=== PATIENT | female | born 1990 | race Caucasian/White ===

== ENCOUNTER 2017-02-18 13:40 | Emergency (ER) | payer OTHER ==
[~2017-02-18] VITALS: Ht 172.7 cm; Wt 87.8 kg
[2017-02-18 13:57] VITALS: BP 130/71; PULSE 108; TEMP 37; O2SAT 99; Ht 172.7 cm; Wt 87.8 kg
[2017-02-18] MEDS ORDERED: PRENTAB26 PO (14:36)
--- NOTE | 2017-02-18 14:45 | EMERGENCY ROOM VISIT NOTE ---
History First contact with patient: 14:05 Chief Complaint: BACK PAIN Stated Complaint: EXTREME LOWER BACK PAIN History of Present Illness The patient is a 26 year old female who presents to the Emergency Room via private vehicle accompanied by son with complaints of "extreme low back pain". The patient states that she is 12 weeks . She states that she has a history of back problems of which she is been experiencing for the past 3 years. She states this is worse than her normal back pain. She states that she tried to crack her back by twisting earlier in the week and since then this caused her pain. She points to the superior lumbar spine as a location of the pain she rates as an 8/10. It is worse with movement. She states she feels it is worsening. She denies any urinary symptoms, lower extremity weakness, bowel or bladder incontinence, numbness or tingling in her genital region, abdominal pain, vaginal spotting or vaginal discharge. Review of Systems A complete 6-point Review of Systems was discussed with the patient, with pertinent positives and negatives listed in the History of Present Illness. All remaining Review of Systems questions can be considered negative unless otherwise specified. Past Medical/Surgical History Low back pain, scoliosis Family History No pertinent family history at this time. Social History Smoking Status: Current Every Day Smoker Current/Historical Medications Scheduled Multivit/Min/Iron/Fol Ac/Pren ( Vitamin), 1 TAB PO DAILY Allergies Coded Allergies: No Known Allergies (Unverified , 02/18/17) Physical Exam Vital Signs Date Time Temp Pulse Resp B/P Pulse Ox O2 Delivery O2 Flow Rate FiO2 02/18/17 13:57 37.0 108 16 130/71 99 Room Air Physical Exam PHYSICAL EXAM: VITALS: Vitals are noted on the nurse's note and reviewed by myself. Vital signs stable. GENERAL: 26-year-old female, in no acute distress, nondiaphoretic, well- developed well-nourished. SKIN: The skin was without rashes, erythema, edema, or bruising. Capillary refill less than 2 seconds. NECK: Supple without nuchal rigidity. No cervical spine tenderness. No paraspinous muscle tenderness. HEART: Regular rate and rhythm without murmurs gallops or rubs. LUNGS: Clear to auscultation bilaterally without wheezes, rales or rhonchi. ABDOMEN: Positive bowel sounds x 4. Normal tympanic percussion. Soft, nontender, without masses or organomegaly. MUSCULOSKELETAL: No muscle atrophy, erythema, or edema noted of the back. There is minimal tenderness over the lumbar spinous processes. There is positive tenderness over the paraspinous muscles of the superior lumbar spine. There is minimal tenderness over the thoracic spine and paraspinous muscles. There are positive muscle spasms present. The patient is slow to move around with maximum tenderness with any superior lumbar paraspinous processes. NEURO: Patient was alert and oriented to person place and time. Normal sensation to light and sharp touch. Deep tendon reflexes 2+ in the lower extremities. Strength 5/5 and equal in the bilateral lower extremities. Medical Decision & Procedures Medical Decision The patient was seen and evaluated as above. After obtaining a thorough history and physical examination a thorough discussion was had with the patient regarding benefits versus risk of obtaining imaging pain medication because she was . The patient states she tried [id number] medication and was requesting medication such as Percocet. I informed her this is potentially harmful to the fetus. She states that she took this during her entire last and is aware of the risks. I do not believe that imaging is warranted at this time. I believe that the benefit of imaging outweighs the risk to her in the fetus. She was neurologically intact. I do not suspect any traumatic mechanism of injury. I did discuss the case with my attending and the decision was made to not provide narcotics as risk outweighed the benefit. Patient was informed upon this and began to cry noting that she was in pain. I informed her that we do not believe the benefit outweighs the risk providing narcotic medication. She was reviewed with him the [place] drug monitoring system and has had various prescriptions for high strength narcotic medication. I informed her that I be more than happy to contact her MINE MOTOR ENGINEER or family doctor to help establish follow-up for her back pain. She states that she will contact them to schedule follow-up. She was in agreement with plan, was educated upon worrisome symptoms in which to return, had questions prior to discharge and was discharged home in good condition. In the evaluation and treatment of this patient following differential diagnoses were entertained: Lumbar strain, cauda equina syndrome, miscarriage, drug-seeking behavior, among others. I suspect the patient is experiencing a superior lumbar strain. I do not suspect any emergent processes. [place] Drug Monitoring Program Search Results: patient reviewed within database, see additional documentation Impression Primary Impression: Strain of lumbar region Departure Information Dispostion Home / Self-Care Condition GOOD Referrals No Doctor, Assigned (PCP) Jacinto Ortiz M.D. Patient Instructions [facility] Additional Instructions You have been treated in the Emergency Department for Back Pain. For pain control, you can use the following [id number] medicines (if >12 yo): - Regular strength (325mg/tab) Tylenol (acetaminophen) 2 tabs every 4-6 hours as needed. Do not exceed 12 tablets in a 24 hour period. Avoid taking more than 3 grams (3000 mg) of Tylenol per day. This includes any other sources of acetaminophen you may take on a regular basis. If this is an acute injury, ice can be applied to the area of pain for the first 3 days to help decrease pain and inflammation. After the first 3 days, a heating pad can be used over the area for continued soothing relief. You should schedule a follow-up appointment in 2-3 days with your Primary Care Provider for further evaluation and treatment of your back pain. You've also been provided the number for a robotics specialist, of which he may follow-up for in the future as we discussed. As we discussed we are not comfortable providing narcotic medication as you are . It is recommended to discuss pain options with your MINE MOTOR ENGINEER and family doctor. Return to the Emergency Department if your current symptoms worsen despite treatment course outlined above, or if you develop any of the following symptoms : intractable pain despite aforementioned treatment course, loss of control of your bowel or bladder, numbness or tingling in your groin, or development of a fever. We would be more than happy to help at any time, please return with any new/ concerning symptoms.
== END 2017-02-18 14:52 | disposition home or self-care (01) ==
LOC: C.EDB 13:42 → C.EDD 14:52
DX: S39.012A Strain of muscle, fascia and tendon of lower back, initial encounter (principal); O99.89 Other specified diseases and conditions complicating pregnancy, childbirth and the puerperium; Z3A.12 12 weeks gestation of pregnancy; X50.0XXA Overexertion from strenuous movement or load, initial encounter; F17.210 Nicotine dependence, cigarettes, uncomplicated; O99.331 Smoking (tobacco) complicating pregnancy, first trimester

== ENCOUNTER → 2017-02-18 | Outpatient (CLI) | payer OTHER ==
[~2017-02-18] MED LIST: PRENTAB26 PO
[2017-02-18 16:31] LABS: URINE APPEARANCE CLEAR (CLEAR); URINE BILIRUBIN NEG (NEG); URINE COLOR YELLOW; URINE EPITHELIAL CELL AUTO >30 /lpf (0-5); URINE NITRITE NEG (NEG); URINE SPECIFIC GRAVITY 1.018 (1.000-1.030); UROBILINOGEN NEG (NEG)
[2017-02-18 16:34] LABS: MANUAL MICROSCOPIC REQUIRED? NO; REVIEW REQ? NO
== END | disposition home or self-care (01) ==
LOC: C.LABSPEC 16:08
PROVIDERS: ATTEND Obstetrics & Gynecology
DX: O99.330 Smoking (tobacco) complicating pregnancy, unspecified trimester (principal); F17.200 Nicotine dependence, unspecified, uncomplicated

== ENCOUNTER → 2017-02-24 | Outpatient (CLI) | payer OTHER ==
[~2017-02-24] MED LIST changes: +CALC500C3; +FERR50TA3
[2017-02-24 14:40] LABS: BASO % 0.1 %; BASO ABS # 0.01 K/uL (0-0.2); COMPLETE YES; EOS % 0.3 %; HEMATOCRIT 32.8 % (37-47); IG% 0.3 %; LYMPH % 13.3 %; LYMPH ABS # 1.24 K/uL (1.2-3.4); MEAN CORPUSCULAR HEMOGLOBIN 29.5 pg (25-34); MEAN CORPUSCULAR HGB CONC 34.8 g/dl (32-36); MONO % 5.3 %; NEUT % 80.7 %; PLATELET COUNT 315 K/uL (130-400); RED BLOOD COUNT 3.86 M/uL (4.2-5.4); WHITE BLOOD COUNT 9.32 K/uL (4.8-10.8)
== END | disposition home or self-care (01) ==
LOC: C.LAB1850 12:18
PROVIDERS: ATTEND Obstetrics & Gynecology
DX: Z36 Encounter for antenatal screening of mother (principal)

== ENCOUNTER → 2017-02-24 | Outpatient (CLI) | payer OTHER ==
[2017-02-27 00:58] LABS: CHLAMYDIA TRACH RNA*** NOT DETECTED (NOT DETECTED); GC (NEIS GONORRHOEAE)RNA** NOT DETECTED (NOT DETECTED)
== END | disposition home or self-care (01) ==
LOC: C.LABSPEC 14:43
PROVIDERS: ATTEND Obstetrics & Gynecology
DX: Z36 Encounter for antenatal screening of mother (principal)

== ENCOUNTER → 2017-02-24 | Outpatient (CLI) | payer OTHER | END | disposition home or self-care (01) | LOC: C.PAPS 16:33 | PROVIDERS: ATTEND Obstetrics & Gynecology | DX: Z36 Encounter for antenatal screening of mother (principal) ==

== ENCOUNTER → 2017-04-10 | Outpatient (CLI) | payer OTHER ==
[2017-04-10 11:03] LABS: GTGD 50 Grams
== END | disposition home or self-care (01) ==
LOC: C.LAB1850 08:49
PROVIDERS: ATTEND Obstetrics & Gynecology
DX: Z34.92 Encounter for supervision of normal pregnancy, unspecified, second trimester (principal)

== ENCOUNTER → 2017-06-17 | Outpatient (CLI) | payer OTHER ==
[2017-06-17 11:39] LABS: URINE APPEARANCE CLOUDY (CLEAR); URINE BILIRUBIN NEG (NEG); URINE COLOR DK YELLOW; URINE EPITHELIAL CELL AUTO >30 /lpf (0-5); URINE NITRITE NEG (NEG); URINE SPECIFIC GRAVITY 1.024 (1.000-1.030); UROBILINOGEN NEG (NEG)
[2017-06-17 11:40] LABS: MANUAL MICROSCOPIC REQUIRED? NO; REVIEW REQ? YES
[2017-06-17 13:29] LABS: GTGD 50 Grams
== END | disposition home or self-care (01) ==
LOC: C.LAB1850 09:35
PROVIDERS: ATTEND Obstetrics & Gynecology
DX: Z34.83 Encounter for supervision of other normal pregnancy, third trimester (principal)

== ENCOUNTER → 2017-08-07 | Outpatient (CLI) | payer OTHER | END | disposition home or self-care (01) | LOC: C.LABSPEC 11:21 | PROVIDERS: ATTEND Obstetrics & Gynecology | DX: Z34.83 Encounter for supervision of other normal pregnancy, third trimester (principal) ==

== ENCOUNTER 2017-08-30 07:18 | Inpatient (IN) | payer OTHER ==
[~2017-08-30] VITALS: Ht 172.7 cm; Wt 95.0 kg
[~2017-08-30 07:18] MED LIST changes: -CALC500C3; -FERR50TA3
[2017-08-30] MEDS ORDERED: CALC500C3 (07:44)
[2017-08-30] MEDS ORDERED: FERR50TA3 (07:44)
[2017-08-30 07:45] VITALS: Ht 172.7 cm; Wt 95.0 kg
[2017-08-30] MEDS ORDERED: BUTORPHANOL TARTRATE 1 MG/ML VIAL IV PRN (08:30)
[2017-08-30 09:00] LABS: HEMATOCRIT 32.2 % (37-47); MEAN CELL VOLUME 87.3 fL (80-100); MEAN CORPUSCULAR HEMOGLOBIN 30.4 pg (25-34); MEAN CORPUSCULAR HGB CONC 34.8 g/dl (32-36); MEAN PLATELET VOLUME 9.6 fL (7.4-10.4); PLATELET COUNT 343 K/uL (130-400); RED BLOOD COUNT 3.69 M/uL (4.2-5.4); WHITE BLOOD COUNT 21.61 K/uL (4.8-10.8)
[2017-08-30] MEDS: LACTATED RINGER'S 1000ML 1,000 ML IV SCH ×2 (09:44→12:12)
[2017-08-30] MEDS ORDERED: BUPIVACAINE 0.25% 30 ML VIAL ONE (11:44)
[2017-08-30] MEDS ORDERED: FENTANYL 2MCG/ML ROPIV 1.25MG/ML 100ML BAG EPI ONE (11:45)
[2017-08-30] MEDS ORDERED: EpHEDrine SULFATE INJ 50 MG/ML AMP ONE (11:45)
[2017-08-30] MEDS ORDERED: FENTANYL CITRATE INJ 50 MCG/1 ML 2 ML VIAL ONE (11:45)
[2017-08-30] MEDS ORDERED: LACTATED RINGER'S 1000ML 500 ML IV PRN (12:16)
[2017-08-30] MEDS ORDERED: NALOXONE HCL INJ 0.4 MG/1 ML VIAL/CARP IV PRN (12:30)
[2017-08-30] MEDS ORDERED: FENTANYL 2MCG/ML ROPIV 1.25MG/ML 100ML BAG EPI PRN (12:30)
[2017-08-30] MEDS ORDERED: EpHEDrine SULFATE INJ 50 MG/ML AMP IV PRN (12:30)
[2017-08-30] MEDS ORDERED: OXYTOCIN 30 UNITS/500ML NSS IV ONE (15:25)
[2017-08-30] MEDS ORDERED: HYDROCORTISONE ACETATE 25 MG SUPP PR PRN (16:00)
[2017-08-30] MEDS ORDERED: ACETAMINOPHEN 325 MG TAB PO PRN (16:00)
[2017-08-30] MEDS ORDERED: OXYTOCIN 30 UNITS/500ML NSS IV PRN (16:00)
[2017-08-30] MEDS ORDERED: LANOLIN OINT EXT PRN ×2 (16:00)
[2017-08-30] MEDS ORDERED: SUPERCREAM 0.870 % 15GM JAR EXT PRN (16:00)
[2017-08-30] MEDS ORDERED: BENZOCAINE 20% AER SPR 82.5 GM CAN EXT PRN (16:00)
[2017-08-30] MEDS ORDERED: ACETAMINOPHEN/CODEINE 300/30MG TAB PO PRN (16:00)
[2017-08-30] MEDS ORDERED: IBUPROFEN 600 MG TAB ONE (16:12)
[2017-08-30] MEDS: IBUPROFEN 600 MG TAB PO PRN ×2 (16:14→22:25)
--- NOTE | 2017-08-30 17:11 | Vaginal Delivery Summary ---
Vaginal Delivery Summary Patient was on labor and delivery when RNs discovered that the baby had delivered into the bed. Dr. Gomez (business operations manager) and myself were in the operating room attending to an emergency and we were notified of this by phone. I scrubbed out and came to L&D where I found mom in good condition, in the warmer and crying, and the umbilical cord presenting per vagina with a clamp on its end. Cord blood was collected and the placenta was then delivered spontaneously. The cervix, vagina and perineum were free of lacerations requiring repair. Fundus was firm and lochia was minimal. I estimated EBL as 250cc based on the chux beneath the patient which was unchanged since delivery of the baby per the staff.
--- NOTE | 2017-08-30 17:44 | Anesthesia Procedure Note ---
Anesthesia Epidural Removal Nt Date & Time Aug 30, 2017 at 17:44 Notes Mental Status: alert / awake / arousable, participated in evaluation Nausea / Vomiting: adequately controlled Pain: adequately controlled Airway Patency, RR, SpO2: stable & adequate BP & HR: stable & adequate Hydration State: stable & adequate Neuraxial Anesthesia: was administered Anesthetic Complications: no major complications apparent, pt satisfied with anesthetic care Epidural: removed without complications, with tip intact
[2017-08-30 19:40] VITALS: BP 112/67; PULSE 94; TEMP 36.7; O2SAT 98
[2017-08-30] MEDS: ACETAMINOPHEN/CODEINE 300/30MG TAB PO PRN (19:42)
[2017-08-30] MEDS: DOCUSATE SODIUM 100 MG CAP PO SCH (19:43)
[2017-08-31 00:45] VITALS: BP 107/68; PULSE 85; TEMP 36.8; O2SAT 100
[2017-08-31 04:30] VITALS: BP 109/68; PULSE 80; TEMP 36.6; O2SAT 99
[2017-08-31] MEDS: IBUPROFEN 600 MG TAB PO PRN ×3 (04:38→12:40)
[2017-08-31] MEDS: ACETAMINOPHEN/CODEINE 300/30MG TAB PO PRN (04:38)
[2017-08-31 06:30] LABS: HEMATOCRIT 29.3 % (37-47)
--- NOTE | 2017-08-31 06:55 | Progress Note ---
Subjective Aug 31, 2017. Subjective conversation w/ patient, physical exam, chart review, lab review Ambulation: ambulating normally Voiding: no voiding problems Passing Gas: Yes Diet Tolerance: Regular Diet Lochia: Small Feeding Type: Breast Feeding Pain: Says is "super crampy" Comment: Found pt resting comfortably. Says she feels very crampy at times but otherwise no acute concerns. Review of Systems Constitutional: No fever, No chills Respiratory: No cough, No shortness of breath Cardiac: No chest pain, No edema Abdomen: No nausea, No vomiting, No diarrhea Female : No dysuria Objective Vital Signs Date Time Temp Pulse Resp B/P (MAP) Pulse Ox O2 Delivery O2 Flow Rate FiO2 08/31/17 04:30 36.6 80 18 109/68 (82) 99 Room Air 08/31/17 00:45 100 Room Air 08/31/17 00:45 36.8 85 16 107/68 (81) 100 Room Air 08/30/17 19:40 98 Room Air 08/30/17 19:40 36.7 94 18 112/67 (82) 98 Room Air Physical Exam General Appearance: WELL-APPEARING, WD/WN, NO APPARENT DISTRESS Respiratory/Chest: lungs clear, normal breath sounds, no respiratory distress Cardiovascular: regular rate, rhythm, no edema, no murmur Abdomen: normal bowel sounds, non tender, soft Fundus: Firm, Non-Tender, Relation to Umbilicus (approx two down) Extremities: normal range of motion, no pedal edema, no calf tenderness Laboratory Results Last 24 Hours Test 08/30/17 08:47 08/31/17 06:06 White Blood Count 21.61 K/uL Red Blood Count 3.69 M/uL Hemoglobin 11.2 g/dL 10.0 g/dL Hematocrit 32.2 % 29.3 % Mean Corpuscular Volume 87.3 fL Mean Corpuscular Hemoglobin 30.4 pg Mean Corpuscular Hemoglobin Concent 34.8 g/dl RDW Standard Deviation 42.1 fL RDW Coefficient of Variation 13.0 % Platelet Count 343 K/uL Mean Platelet Volume 9.6 fL Assessment and Plan Post- Day#: 1 Continue Routine Care: 27F s/p , now PPD #1. - Blood type B positive. GBS negative. Rubella immune. - Vital signs reviewed and stable. - Pain controlled with motrin. - No leg swelling or tenderness on calf palpation. Encourage ambulation. - Encourage breast feeding. - Hemoglobin pre-delivery 11.2, post-delivery 10.0. Bleeding has improved. Continue to monitor clinically. - Continue routine post-vaginal delivery care. - Pt agreed with above plan, all current questions answered. Raul Gambino MD, PGY1 Sports Specialist Physician Supervision Note: I was present with Dr. Gambino during the history and exam. I discussed the case with the resident and agree with the findings and plan as documented in the note. Any exceptions or clarifications are listed here: PPD#1 doing well. Desires discharge home. Discharge instructions discussed. F/U office in 6w. Documented By: Gaby Gomez Resident Tracking Resident Involvement: Resident Care Provided Care Provided: OB Delivery (OB rounds)
[2017-08-31] MEDS ORDERED: PRENATAL VITAMIN TAB PO SCH (08:00)
[2017-08-31] MEDS ORDERED: FERROUS SULFATE 325 MG TAB PO SCH (08:00)
--- NOTE | 2017-08-31 08:00 | Discharge Instructions ---
Discharge Instructions Date of Service Aug 31, 2017. Admission Reason for Admission: Check Rupture Discharge Discharge Diagnosis / Problem: Recovery from vaginal delivery Discharge Goals Goal(s): Routine recovery after delivery Medications Continue Dispensed Medications: supercream, dermaplast, tucks, lansinoh Activity Recommendations Activity Limitations: per Instructions/Follow-up section . Instructions / Follow-Up Instructions / Follow-Up ACTIVITY RECOMMENDATIONS: * Gradual return to full activity over the next 2-3 weeks. * No lifting - nothing heavier than baby over the next 2-3 weeks. * Do not engage in vigorous exercise, sexual activity or sports until cleared by your physician. * Do not drive or operate any motorized equipment until cleared by your physician. * You may shower/bathe daily. MEDICATIONS: For discomfort or pain, you may use Acetaminophen (Tylenol), Ibuprofen (Advil), or Naproxen (Aleve) following the package directions. For constipation you may use Colace following the package directions. BREAST CARE: If you are not breast feeding: * Wear a supportive bra 24 hours a day for one to two weeks. * Avoid stimulating your breasts and nipples as much as possible during the first few weeks after delivery. * When taking a shower, have the warm water hit your back, not breasts. * When your breasts feel full, apply ice packs. Usually three to four times a day helps ease the discomfort. * Take a mild pain medication (Tylenol / Motrin) when you are uncomfortable. If breast feeding: * Use breast milk to lubricate nipples. Lansinoh cream may be used for sore nipples. You do not need to remove cream prior to breast feeding. If using a different brand of cream, check the label for directions regarding removal of cream prior to nursing. * Wear a supportive bra. * If having problems with breasts or breast feeding, call a network relations consultant or your health care provider. EPISIOTOMY CARE: After delivery, if you have an episiotomy (stitches), the following steps will ease discomfort and aid healing. * For the first 24 hours after delivery, place ice packs next to your episiotomy to help reduce swelling. * After the first 24 hour-period, sitz baths, either portable or in the tub, are suggested. A shower with a shower arm sprayed over the episiotomy may be comforting. * Leatha care should be done after each voiding and bowel movement. Squirt warm water from a plastic bottle over the perineum (region of the body between the anus and urinary opening) and pat dry. * Use Dermoplast to ease discomfort. Shake container. Stevens directly over the episiotomy. Place a Tucks on a clean sanitary pad next to your episiotomy. SPECIAL CARE INSTRUCTIONS: When you are discharged from the hospital, it is important for you to follow the instructions listed below: * During the first week at home, you should be able to care for yourself and your baby. In addition, the usual light household activities are encouraged. * Limit your activities to the way you feel. Do not try to clean the house or move furniture. Be sensible. * If you actively engage in sports and have done so up until the time of your delivery, you may resume these activities as soon as you feel able. This may take up to one month or even longer. Use good judgment. * Continue to take your vitamins for at least six weeks after the of your baby. * Your diet need not be limited unless you were on a special diet before your delivery. Breast-feeding mothers need around 2500 calories per day and at least 64-80 ounces of fluid per day (8 to 10 glasses). * You should eat foods from the four major food groups. Crash diets or fad diets are to be avoided. Eating lean meats, fresh fruits and vegetables, low-fat dairy products, high fiber foods and a regular exercise program, will help you get back to your pre- weight without putting your health at risk. * Constipation is sometimes a problem after delivery. Take a mild laxative as needed. If breast feeding, Milk of Magnesia is acceptable to use. You may use a suppository or Fleets enema if no episiotomy. * A daily shower or tub bath is suggested. Be sure to thoroughly and gently dry the perineum. * A bloody vaginal discharge will usually continue until around four weeks post . A small amount of bleeding may continue for as long as six weeks. Vaginal discharge changes from the bright red bleeding after delivery to pink then brownish and finally yellowish-pink before becoming white and disappearing. * Bleeding may increase with activity. Your first period may come in 4-8 weeks. If you are breast feeding, your period may be delayed even longer. * [place] (sex) can begin whenever both you and your partner feel comfortable and do not have any form of genital infection. It is recommended that you wait at least six weeks for internal and external healing to occur. If you have questions, please talk to your health care practitioner. A condom should be used to prevent infection and . * Foreplay, gentle intercourse and lubrication is very important the first several times to prevent pain. A water-based lubricant such as K-Y jelly or Astroglide may be used. * If you have RH negative blood and your baby is RH positive, you will receive RHOGAM by injection prior to discharge. The nurse will give you a card to keep with you that has the date and place that you received RHOGAM after delivery. * During your care, you had a Rubella screen done to check for the presence of rubella antibodies in your blood. If your test was negative, you will receive a Rubella vaccine prior to discharge. This vaccine may cause a fever, soreness at the injection site and flu-like symptoms. If these symptoms persist, notify your health care practitioner. is not advised for one month after a Rubella vaccine. * Verbalizes understanding of car seat law as reviewed with patient nursing. * Car Seat hand-out given and reviewed with patient by nursing. * Shaken baby information reviewed with patient by nursing. Call you doctor if: * Heavy bleeding (saturating several pads an hour) or passing clots the size of your fist. * A fever >101 degrees F (38.3 degrees C) on two occasions four hours apart and /or chills. * Unusual pain in the pelvic or vaginal areas. * "Baby Blues" lasting longer than two weeks. If you have any questions or concerns, call your health care practitioner at . FOLLOW UP VISIT: * Please call the office at to schedule a 6 week examination. It is important you keep this appointment. It is important for you to make arrangements for either yearly or twice yearly check-ups thereafter. Current Hospital Diet Patient's current hospital diet: Regular OB Diet Discharge Diet Recommended Diet: Regular OB Diet Pending Studies Studies pending at discharge: no Medical Emergencies . Who to Call and When: Medical Emergencies: If at any time you feel your situation is an emergency, please call [phone] immediately. . Non-Emergent Contact Non-Emergency issues call your: General Contractor . . "Provider Documentation" section prepared by Raul Gambino. . VTE Core Measure Inpt VTE Proph given/why not?: Treatment not indicated
[2017-08-31 08:15] VITALS: BP 101/64; PULSE 82; TEMP 36.7; O2SAT 99
[2017-08-31] MEDS: DOCUSATE SODIUM 100 MG CAP PO SCH (08:49)
[2017-08-31 12:30] VITALS: BP 128/76; PULSE 104; TEMP 36.7; O2SAT 98
[2017-08-31 17:30] VITALS: BP_DIAS 76; PULSE 104; TEMP 36.7
[2017-08-31] MEDS ORDERED: BISACODYL 5 MG TABEC PO SCH (20:00)
[2017-09-01] MEDS ORDERED: BISACODYL 10 MG SUPP PR PRN (07:00)
== END 2017-08-31 17:30 | disposition home or self-care (01) | DRG 775 ==
LOC: C.OPB 07:18 → C.LD 07:19 → C.OPB 08:28 → C.OBG 18:48
PROVIDERS: ADMIT Obstetrics & Gynecology; ATTEND Obstetrics & Gynecology
PROC: 10E0XZZ Delivery of Products of Conception, External Approach (ICD-10-PCS; principal; 2017-08-30)
DX: O99.333 Smoking (tobacco) complicating pregnancy, third trimester (principal); F17.210 Nicotine dependence, cigarettes, uncomplicated; Z3A.39 39 weeks gestation of pregnancy; Z37.0 Single live birth

== ENCOUNTER → 2017-10-12 | Outpatient (CLI) | payer OTHER ==
[~2017-10-12] MED LIST changes: +CALC500C3; +FERR50TA3
== END | disposition home or self-care (01) ==
LOC: C.LABPVFM 16:21
PROVIDERS: ATTEND Family Medicine Adult Medicine
DX: J02.9 Acute pharyngitis, unspecified (principal)